=== PATIENT | male | born 2000 | race Caucasian/White ===

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

== ENCOUNTER 2021-11-04 01:48 | Emergency (ER) | payer OTHER ==
[2021-11-04 02:12] VITALS: BP 138/77; PULSE 52; TEMP 98.5; BMI 19.0
[2021-11-04] MEDS ORDERED: IBUPROFEN 400 MG TABLET (FP) PO ONE ×2 (03:02→03:08)
== END 2021-11-04 03:47 | disposition home or self-care (01) ==
LOC: JER 01:48
DX: R51.9 Headache, unspecified (principal); V49.50XA Passenger injured in collision with unspecified motor vehicles in traffic accident, initial encounter
CPT/HCPCS: 99283-25

== ENCOUNTER 2022-12-03 23:20 | Emergency (ER) | payer OTHER ==
[2022-12-03 23:27] VITALS: BP 114/71; PULSE 67; RESP 18; TEMP 97.7; BMI 19.5
[2022-12-03] MEDS ORDERED: KETOROLAC TROMETHAMINE 30 MG/1 ML VIAL IM ONE (23:45)
[2022-12-03] MEDS ORDERED: KETOROLAC TROMETHAMINE 30 MG/1 ML VIAL ONE (23:55)
== END 2022-12-04 04:05 | disposition home or self-care (01) ==
LOC: JERFT 23:20 → JER 23:20
PROC: 3E0233Z Introduction of Anti-inflammatory into Muscle, Percutaneous Approach (ICD-10-PCS; principal; 2022-12-03)
DX: M25.561 Pain in right knee (principal); S80.911A Unspecified superficial injury of right knee, initial encounter; X58.XXXA Exposure to other specified factors, initial encounter; Y93.67 Activity, basketball
CPT/HCPCS: 73562-TC-RT-FY; 99284-25

== ENCOUNTER 2023-08-20 19:12 | Emergency (ER) | payer OTHER ==
[2023-08-20 19:19] VITALS: RESP 18; TEMP 97.6; BMI 19.5
[2023-08-20] MEDS: KETOROLAC TROMETHAMINE 30 MG/1 ML VIAL IM ONE (19:56)
[2023-08-20] MEDS: morphine CARPU-JECT 4 MG/1 ML DISP.SYRIN IVPUSH ONE (20:22)
[2023-08-20] MEDS ORDERED: FENTANYL CITRATE/PF 50 MCG/ML VIAL ONE ×2 (20:23→20:59)
[2023-08-20] MEDS: NALOXONE HCL 0.4 MG/ML VIAL IVPUSH ONE (21:14)
[2023-08-20 21:49] VITALS: BP 136/76; PULSE 55
== END 2023-08-20 21:50 | disposition home or self-care (01) ==
LOC: JER 19:12
PROC: 3E033GC Introduction of Other Therapeutic Substance into Peripheral Vein, Percutaneous Approach (ICD-10-PCS; principal; 2023-08-20)
PROC: 3E033GC Introduction of Other Therapeutic Substance into Peripheral Vein, Percutaneous Approach (ICD-10-PCS; 2023-08-20)
DX: S03.03XA Dislocation of jaw, bilateral, initial encounter (principal); X58.XXXA Exposure to other specified factors, initial encounter
CPT/HCPCS: 70330-TC-FY; 70486-TC; 99284-25